=== PATIENT | male | born 1955 | race Caucasian/White ===

== ENCOUNTER 2016-08-07 13:21 | Emergency (ER) | payer OTHER ==
[~2016-08-07] VITALS: Ht 162.6 cm; Wt 71.3 kg
[2016-08-07 13:23] VITALS: BP 186/98; PULSE 87; RESP 15; TEMP 98; O2SAT 100
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
[2016-08-07] MEDS ORDERED: IBUP800T23 PO (15:52)
[2016-08-07] MEDS ORDERED: ROBA500T PO (15:52)
[2016-08-07] MEDS ORDERED: METHOCARBAMOL 500 MG TAB PO ONE (16:00)
[2016-08-07] MEDS ORDERED: IBUPROFEN 800 MG TAB PO ONE (16:00)
== END 2016-08-07 16:12 | disposition home or self-care (01) ==
LOC: NEPB 13:21
DX: S16.1XXA Strain of muscle, fascia and tendon at neck level, initial encounter (principal); S00.83XA Contusion of other part of head, initial encounter; V43.52XA Car driver injured in collision with other type car in traffic accident, initial encounter; M79.602 Pain in left arm
CPT/HCPCS: 99283